=== PATIENT | female | born 1995 | race Caucasian/White ===

== ENCOUNTER 2018-07-25 13:17 | Emergency (ER) | payer BC, OTHER ==
[~2018-07-25] VITALS: Ht 149.9 cm; Wt 62.1 kg
--- NOTE | 2018-07-25 13:20 | NUR ---
JUN BENJAMIN AT BEDSIDE FOR MSE.
--- NOTE | 2018-07-25 13:26 | NUR ---
PT A/OX4, PRESENTS TO THE ER C/O L EYE IRRITATION. PT REPORTS SHE WAS RUBBING HER EYES W/ CONTACT LENS ON PRIOR TO ONSET OF L EYE PAIN. REDNESS IN L SCLERA PRESENT. VSS. L EYE PAIN NON-PROVOKED, STINGING IN QUALITY, DOES NOT RADIATE, CONSTANT. PT DENIES C/P, SOB, N/V/D, DIZZINESS, HEADACHE.
[2018-07-25] MEDS ORDERED: TETRACAINE HCL 0.5% OPHT DROP 2 ML BOTTLE ONE (13:28)
[2018-07-25] MEDS ORDERED: FLUORESCEIN SODIUM 1 MG STRIP ONE (13:28)
[2018-07-25] MEDS ORDERED: TETRACAINE HCL 0.5% OPHT DROP 2 ML BOTTLE OP ONE (13:30)
[2018-07-25] MEDS ORDERED: FLUORESCEIN SODIUM 1 MG STRIP OP ONE (13:30)
--- NOTE | 2018-07-25 13:54 | NUR ---
Patient discharged to home in stable conditon. Written and verbal after care instructions given. Patient verbalizes understanding of instructions.
[2018-07-25 13:55] VITALS: BP 115/58
== END 2018-07-25 13:56 | disposition home or self-care (01) ==
LOC: ER 13:17
DX: S05.02XA Injury of conjunctiva and corneal abrasion without foreign body, left eye, initial encounter (principal); J45.909 Unspecified asthma, uncomplicated; X58.XXXA Exposure to other specified factors, initial encounter; Y93.89 Activity, other specified; Y92.89 Other specified places as the place of occurrence of the external cause; Y99.8 Other external cause status
CPT/HCPCS: A4663

== ENCOUNTER 2019-08-22 14:56 | Emergency (ER) | payer BC, OTHER ==
[~2019-08-22] VITALS: Ht 149.9 cm; Wt 61.2 kg
--- NOTE | 2019-08-22 15:18 | NUR ---
PT WAS EVALUATED BY DR OROSCO. PT WAS D/C'd TO HOME. D/C INSTRUCTIONS GIVEN TO THE PT BY DR OROSCO.
[2019-08-22 15:24] VITALS: BP 128/76
== END 2019-08-22 15:31 | disposition home or self-care (01) ==
LOC: ER 14:56
DX: Z03.818 Encounter for observation for suspected exposure to other biological agents ruled out (principal)
CPT/HCPCS: A4663; U0003-CS

== ENCOUNTER 2019-09-11 07:28 | Emergency (ER) | payer OTHER ==
[~2019-09-11] VITALS: Ht 149.9 cm; Wt 61.2 kg
--- NOTE | 2019-09-11 07:36 | NUR ---
MD seen patient at this time
--- NOTE | 2019-09-11 07:43 | NUR ---
covid swab taken and sent to lab at this time
== END 2019-09-11 07:46 | disposition home or self-care (01) ==
LOC: ER 07:29
DX: Z03.818 Encounter for observation for suspected exposure to other biological agents ruled out (principal)
CPT/HCPCS: 99283; U0003; A4663

== ENCOUNTER 2021-05-20 10:41 | Emergency (ER) | payer BC, OTHER ==
[~2021-05-20] VITALS: Ht 152.4 cm; Wt 61.2 kg
[2021-05-20] MEDS ORDERED: PSEU-310 PO (11:04)
--- NOTE | 2021-05-20 11:07 | NUR ---
PT WAS EVALUATED BY DR POTTER. PT WAS D/C'd TO HOME. D/C INSTRUCTIONS GIVEN TO THE PT BY DR POTTER.
[2021-05-20 11:14] VITALS: BP 129/78
== END 2021-05-20 11:14 | disposition home or self-care (01) ==
LOC: ER 10:41
DX: J06.9 Acute upper respiratory infection, unspecified (principal); J45.909 Unspecified asthma, uncomplicated
CPT/HCPCS: A4663